=== PATIENT | female | born 1985 ===

== ENCOUNTER 2018-04-17 04:56 | Emergency (ER) | payer MEDICAID ==
[2018-04-17 05:13] VITALS: RESP 18; TEMP 98.4
--- NOTE | 2018-04-17 05:27 | ED PDOC ---
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 Patient reports she forgot to take her Trileptal medication today.Last seizure almost a year ago.Unsure of any history of substance abuse, but patient denies taking any drugs or drinking alcohol tonight. Patient denies any fever, chills, chest pain, shortness of breath, nausea, vomiting, diarrhea, urinary symptoms, back pain, neck pain, headache, dizziness, or any other complaints. Time/Duration: Prior to Arrival Symptom Onset: Sudden Symptom Course: Improving Activities at Onset: Light Context: Other (back seat of car) Past Medical History - Provider Review Nursing Documentation Reviewed: Yes - Infectious Disease Hx of Infectious Diseases: None - Neurological Hx Seizures: Yes - Psychiatric Hx Substance Use: No Family/Social History - Physician Review Nursing Documentation Reviewed: Yes Family/Social History: No Known Family HX Smoking Status: Never Smoked Hx Alcohol Use: Yes Frequency of alcohol use: Socially Hx Substance Use: No Allergies/Home Meds Allergies/Adverse Reactions: Allergies No Known Allergies Allergy (Verified 04/17/18 05:03) Home Medications: Home Meds Medication Instructions Recorded Confirmed OXcarbazepine [Trileptal] 600 mg PO BID 04/17/18 04/17/18 Review of Systems - Physician Review All systems were reviewed & negative as marked: Yes - Review of Systems Constitutional: absent: Fevers, Other (Chills) Respiratory: absent: SOB Cardiovascular: absent: Chest Pain Gastrointestinal: absent: Diarrhea, Nausea Genitourinary Female: absent: Dysuria, Frequency, Hematuria Musculoskeletal: absent: Back Pain, Neck Pain Neurological: Seizure. absent: Headache, Dizziness Physical Exam Vital Signs Reviewed: Yes Vital Signs Temp Pulse Resp BP Pulse Ox 04/17/18 05:10 98.4 F 109 H 18 116/72 98 Temperature: Afebrile Blood Pressure: Normal Pulse: Tachycardic Respiratory Rate: Normal Appearance: Positive for: Well-Appearing, Non-Toxic, Comfortable Pain Distress: None Mental Status: Positive for: Alert and Oriented X 3 - Systems Exam Head: Present: Atraumatic, Normocephalic Pupils: Present: PERRL Extroacular Muscles: Present: EOMI Conjunctiva: Present: Normal Mouth: Present: Moist Mucous Membranes Neck: Present: Normal Range of Motion Respiratory/Chest: Present: Clear to Auscultation, Good Air Exchange. No: Respiratory Distress, Accessory Muscle Use Cardiovascular: Present: Regular Rate and Rhythm, Normal S1, S2. No: Murmurs Abdomen: No: Tenderness, Distention, Peritoneal Signs Back: Present: Normal Inspection Upper Extremity: Present: Normal Inspection. No: Cyanosis, Edema Lower Extremity: Present: Normal Inspection. No: Edema Neurological: Present: GCS=15, CN II-XII Intact, Speech Normal Skin: Present: Warm, Dry, Normal Color. No: Rashes Psychiatric: Present: Alert, Oriented x 3, Normal Insight, Normal Concentration Medical Decision Making ED Course and Treatment: 04/17/18 05:27 Impression: 32 year old female presents s/p seizure episode in the back of seat of an [employer]. Plan: -- EKG -- Labs -- Reassess and disposition Progress Notes: 04/17/18 05:42 EKG shows Sinus Tachycardic at 109 BPM with non-specific ST/T changes. Interpreted by me. 04/17/18 07:08 The patient is choosing to leave against medical advice. I have personally explained to the patient that choosing to do so may result in permanent bodily harm, diability, or . I have discussed at great length that without further evaluation and monitoring there may be unforeseen circumstances and/or deterioration causing permanent bodily harm or as a result of their choice. The patient is alert, oriented, and shows the mental capacity to make clear decisions regarding the patients health care at this time. The patient continues to wish to leave against medical advice. In light of the patients decision to leave against medical advice, follow-up has been arranged and the patient is aware of the importance to following up as instructed. The patient has been advised that they should return to the emergency room immediately if they change their mind at any time, or if their condition begins to change or worsen in any way. - Lab Interpretations I have reviewed the lab results: Yes - EKG Interpretation Interpreted by ED Physician: Yes Type: 12 lead EKG - Scribe Statement The provider has reviewed the documentation as recorded by the Halina Desouza Provider Scribe Attestation: All medical record entries made by the Ruibvicki were at my direction and personally dictated by me. I have reviewed the chart and agree that the record accurately reflects my personal performance of the history, physical exam, medical decision making, and the department course for this patient. I have also personally directed, reviewed, and agree with the discharge instructions and disposition. Disposition/Present on Arrival - Present on Arrival Any Indicators Present on Arrival: No History of DVT/PE: No History of Uncontrolled Diabetes: No Urinary Catheter: No History of Decub. Ulcer: No History Surgical Site Infection Following: None - Disposition Have Diagnosis and Disposition been Completed?: Yes Diagnosis: Seizure disorder, Syncope Disposition: AGAINST MEDICAL ADVICE Disposition Time: 07:05 Patient Problems: Current Active Problems Problem Status Onset Seizure disorder Acute Syncope Acute Condition: STABLE Discharge Instructions (ExitCare): Syncope (ED) Referrals: FAMILY PROVIDER,NO [Primary Care Provider] - Follow up with primary Forms: [employer] (Ethiopian)
[2018-04-17 05:55] LABS: BASO # 0.01 K/mm3 (0.0-2.0); BASO % 0.1 % (0.0-3.0); EOS # 0.1 (0.0-0.7); GRAN # 7.44 (1.4-6.5); GRAN % 68.6 % (50.0-68.0); HEMOGLOBIN 12.5 g/dL (12.0-16.0); LYMPH # 2.6 (1.2-3.4); LYMPH % 23.9 % (22.0-35.0); MEAN CELL VOLUME 86.8 fl (80.0-105.0); MEAN CORPUSCULAR HEMOGLOBIN 28.9 pg (25.0-35.0); MEAN CORPUSCULAR HGB CONC 33.2 g/dl (31.0-37.0); MEAN PLATELET VOLUME 11.1 fl (7.0-11.0); MONO # 0.7 (0.1-0.6); MONO % 6.4 % (1.0-6.0); RBC 4.33 10^6/uL (3.5-6.1); RED CELL DISTRIBUTION WIDTH 12.9 % (11.5-14.5); WHITE BLOOD COUNT 10.8 10^3/uL (4.5-11.0)
[2018-04-17 06:06] LABS: ACETAMINOPHEN < 10.0 ug/ml (10.0-20.0); SALICYLATE < 1 mg/dL (2.0-20.0)
[2018-04-17 06:33] VITALS: BP 103/61; PULSE 92; O2SAT 97
[2018-04-17 06:47] LABS: ALB/GLOB RATIO 1.2 (1.1-1.8); ALBUMIN 4.2 g/dL (3.0-4.8); ALT/SGPT 17 U/L (7-56); AST/SGOT 19 U/L (14-36); BLOOD UREA NITROGEN 19 mg/dL (7-21); CALCIUM 9.2 mg/dL (8.4-10.5); GFR NON-AFRICAN AMERICAN > 60
[2018-04-17 07:15] LABS: BARBITURATES, UR NEGATIVE (NEGATIVE); BENZODIAZEPINES, UR NEGATIVE (NEGATIVE); OPIATES, UR NEGATIVE (NEGATIVE); PHENCYCLIDINE, UR NEGATIVE (NEGATIVE)
--- NOTE | 2018-04-17 10:28 | CT ---
Date of service: 04/17/2018 PROCEDURE: CT HEAD WITHOUT CONTRAST. HISTORY: seizure COMPARISON: None available. TECHNIQUE: Axial computed tomography images were obtained through the head/brain without intravenous contrast. Radiation dose: Total exam DLP = 766.64 mGy-cm. This CT exam was performed using one or more of the following dose reduction techniques: Automated exposure control, adjustment of the mA and/or kV according to patient size, and/or use of iterative reconstruction technique. FINDINGS: HEMORRHAGE: No intracranial hemorrhage. BRAIN: No mass effect or edema. No atrophy or chronic microvascular ischemic changes. VENTRICLES: Unremarkable. No hydrocephalus. CALVARIUM: Unremarkable. PARANASAL SINUSES: Unremarkable as visualized. No significant inflammatory changes. MASTOID AIR CELLS: Unremarkable as visualized. No inflammatory changes. OTHER FINDINGS: None. IMPRESSION: No acute intracranial pathology.
--- NOTE | 2018-04-17 10:35 | CARD ---
APPROVED REPORT Date of service: 04/17/2018 EKG Measurement Heart [id number] <Conclusion> Sinus tachycardia Nonspecific T wave abnormality Abnormal ECG
== END 2018-04-17 07:15 | disposition left against medical advice (07) ==
LOC: ED 04:56
DX: G40.909 Epilepsy, unspecified, not intractable, without status epilepticus (principal); R55 Syncope and collapse

== ENCOUNTER 2018-06-03 22:25 | Emergency (ER) | payer MEDICAID ==
[2018-06-03 22:30] VITALS: BMI 23.0
[2018-06-03 22:46] VITALS: RESP 18
[2018-06-03] MEDS ORDERED: Sodium Chloride 0.9% 1,000 ML IV SCH (23:15)
[2018-06-03 23:37] LABS: BASO # 0.01 K/mm3 (0.0-2.0); BASO % 0.1 % (0.0-3.0); EOS % 0.3 % (1.5-5.0); HEMOGLOBIN 10.8 g/dL (12.0-16.0); LYMPH # 3.7 (1.2-3.4); MEAN CELL VOLUME 86.4 fl (80.0-105.0); MEAN CORPUSCULAR HEMOGLOBIN 28.9 pg (25.0-35.0); MEAN CORPUSCULAR HGB CONC 33.4 g/dl (31.0-37.0); MEAN PLATELET VOLUME 10.1 fl (7.0-11.0); MONO # 0.6 (0.1-0.6); MONO % 5.2 % (1.0-6.0); RBC 3.74 10^6/uL (3.5-6.1); RED CELL DISTRIBUTION WIDTH 13.9 % (11.5-14.5)
[2018-06-03 23:38] LABS: INR 1.1; PARTIAL THROMBOPLASTIN TIME 30.1 Seconds (26.9-38.3); PROTHROMBIN TIME 12.2 SECONDS (9.4-12.5)
--- NOTE | 2018-06-03 23:56 | ED PDOC ---
Arrival/HPI - General Chief Complaint: Dizziness/Lightheaded Time Seen by Provider: 06/03/18 23:02 Historian: Patient - History of Present Illness Narrative History of Present Illness (Text): 06/04/18 22:55 32 year old female, whose past medical history includes , P:5, A: 3 previous miscarriages, who presents to the emergency department complaining of vaginal bleeding after taking Misoprostol at 14:00 today. Patient states it was given to her by [facility] for . Patient notes using mostly 5 pads in 2 hours after onset of vaginal bleeding. Patient notes similar occurrence in February when she had to have a D&C. Patient denies any type of trauma, pelvic pain, abdominal pain, constipation, diarrhea, urinary complaints, or any other complaints. Patient denies any recent sexual intercourse or any bleeding disorders. Patient states she does not have a [employer]IST[employer] or PMD. Time/Duration: 1-3 hours (Patient notes onset as 2 hours prior to arrival) Symptom Onset: Sudden Symptom Course: Unchanged Activities at Onset: Other (Patient notes onset after taking Misoprostol at 14:00 today ) Past Medical History - Provider Review Nursing Documentation Reviewed: Yes - Infectious Disease Hx of Infectious Diseases: None - Reproductive Currently : Yes - Cardiac Hx Cardiac Disorders: No - Neurological Hx Seizures: Yes - Psychiatric Hx Substance Use: No - Surgical History Other/Comment: DNC- February Family/Social History - Physician Review Nursing Documentation Reviewed: Yes Family/Social History: No Known Family HX Smoking Status: Never Smoked Hx Alcohol Use: Yes Hx Substance Use: No Allergies/Home Meds Allergies/Adverse Reactions: Allergies No Known Allergies Allergy (Verified 06/03/18 22:29) Home Medications: Home Meds Medication Instructions Recorded Confirmed OXcarbazepine [Trileptal] 2 tab PO BID 06/03/18 06/03/18 Review of Systems - Physician Review All systems were reviewed & negative as marked: Yes - Review of Systems Constitutional: absent: Fatigue Eyes: absent: Vision Changes, Photophobia ENT: absent: Hearing Changes, Tinnitus Respiratory: absent: SOB, Cough, Sputum, Wheezing Cardiovascular: absent: Chest Pain, Palpitations, Edema Gastrointestinal: Normal. absent: Abdominal Pain, Constipation, Diarrhea Genitourinary Female: Vaginal Bleeding. absent: Normal, Dysuria, Frequency, Hematuria, Urine Output Changes, Other Musculoskeletal: absent: Arthralgias, Back Pain, Neck Pain, Joint Swelling Skin: absent: Rash, Pruritis, Skin Lesions, Laceration Neurological: Other (Patient notes light-headedness from bleeding). absent: Normal, Headache Endocrine: absent: Diaphoresis Hemo/Lymphatic: absent: Adenopathy Psychiatric: absent: Anxiety Physical Exam Vital Signs Reviewed: Yes Vital Signs Temp Pulse Resp BP Pulse Ox 06/03/18 22:46 98.8 F 110 H 18 117/80 98 Temperature: Afebrile Blood Pressure: Normal Pulse: Tachycardic Respiratory Rate: Normal Appearance: Positive for: Well-Appearing, Non-Toxic, Comfortable Pain Distress: None Mental Status: Positive for: Alert and Oriented X 3 - Systems Exam Head: Present: Atraumatic, Normocephalic Pupils: Present: PERRL Extroacular Muscles: Present: EOMI Conjunctiva: Present: Normal Mouth: Present: Moist Mucous Membranes Neck: Present: Normal Range of Motion Respiratory/Chest: Present: Clear to Auscultation, Good Air Exchange. No: Respiratory Distress, Accessory Muscle Use Cardiovascular: Present: Regular Rate and Rhythm, Normal S1, S2. No: Murmurs Abdomen: No: Tenderness, Distention, Peritoneal Signs Back: Present: Normal Inspection. No: CVA Tenderness, Midline Tenderness Upper Extremity: Present: Normal Inspection. No: Cyanosis, Edema Lower Extremity: Present: Normal Inspection. No: Edema Neurological: Present: GCS=15, CN II-XII Intact, Speech Normal Skin: Present: Warm, Dry, Normal Color. No: Rashes Psychiatric: Present: Alert, Oriented x 3, Normal Insight, Normal Concentration Medical Decision Making ED Course and Treatment: 06/04/18 22:55 Impression: 32 year old female who presents to the Emergency department for vaginal bleeding after taking Misoprostol at 14:00 today. No fall or trauma. No abdominal pain. No constipation or diarrhea. No dark or bloody stool. Likely bleeding from miscarriage. Plan: -- Labs -- IV fluids -- Transvaginal US -- Reassess and disposition Prior Visits: Notes and results from previous visits were reviewed. Progress Notes: 06/04/18 01:17 O+, no need for Rhogram. Hemoglobin 10. 06/04/18 01:21 pending US 1L bolus ordered for BP drop from 120 systolic to 80s. Transvaginal US reviewed by radiologist, shows: Dictated by: Pool Rodgers M.D. Dictated date/time: 06/04/2018 01:43 IMPRESSION: Endometrial canal is heterogeneous and markedly thickened, up to 2.6 cm, compatible with blood clots. 06/04/18 02:03 US resulted w/ endometrial canal thickening c/w blood clots: Incomplete AB HGB dropped 2 points. 2 units PRBC ordered. PT in NAD, BP improved to systolic in the high 90s. Bolus running Consented to blood. Appreciate consult w/ Dr. Nayely Dye ([facility]): accepts pt to her service Appreciate consult w/ Dr. Ibarra (ED @ [facility]): aware of transfer incoming. 06/04/18 03:44 less tachy, BP systolic 90s. Pt in NAD, Normal mentation. X1 unit PRBC given, another unit hanging pt transferred to [facility] - Lab Interpretations Lab Results: PT 12.2 SECONDS (9.4-12.5) 06/03/18 23:16 INR 1.10 06/03/18 23:16 APTT 30.1 Seconds (26.9-38.3) 06/03/18 23:16 - RAD Interpretation Radiology Orders: 06/03/18 23:03 TRANSVAGINAL [US] Stat - Medication Orders Current Medication Orders: Sodium Chloride (Sodium Chloride 0.9%) 1,000 mls @ 100 mls/hr IV .Q10H CHIARA Last Admin: 06/03/18 23:22 Dose: 100 mls/hr eMAR Start Stop Document 06/03/18 23:22 IT (Rec: 06/03/18 23:22 IT [id number]) Intravenous Solution Start Date 06/03/18 Start Time 23:22 - Scribe Statement The provider has reviewed the documentation as recorded by the Scribe Doris Zavala All medical record entries made by the Scribe were at my direction and personally dictated by me. I have reviewed the chart and agree that the record accurately reflects my personal performance of the history, physical exam, medical decision making, and the department course for this patient. I have also personally directed, reviewed, and agree with the discharge instructions and disposition. Disposition/Present on Arrival - Present on Arrival Any Indicators Present on Arrival: No History of DVT/PE: No History of Uncontrolled Diabetes: No Urinary Catheter: No History of Decub. Ulcer: No History Surgical Site Infection Following: None - Disposition Have Diagnosis and Disposition been Completed?: Yes Diagnosis: Incomplete Disposition: Transfer [facility] Disposition Time: 02:06 Condition: STABLE Forms: [employer] (Tunisian)
[2018-06-04] LABS: ALB/GLOB RATIO 1.1 (1.1-1.8); ALBUMIN 3.8 g/dL (3.0-4.8); ALT/SGPT 9 U/L (7-56); AST/SGOT 20 U/L (14-36); BLOOD UREA NITROGEN 9 mg/dL (7-21); CALCIUM 8.8 mg/dL (8.4-10.5); GFR NON-AFRICAN AMERICAN > 60
[2018-06-04 01:18] VITALS: O2SAT 100
[2018-06-04] MEDS ORDERED: Sodium Chloride 0.9% 1,000 ML IV STA (01:20)
[2018-06-04 01:42] LABS: EOS % 0.2 % (1.5-5.0); LYMPH # 2.5 (1.2-3.4); LYMPH % 21.9 % (22.0-35.0); MEAN CELL VOLUME 86.1 fl (80.0-105.0); MEAN CORPUSCULAR HEMOGLOBIN 28.9 pg (25.0-35.0); MEAN CORPUSCULAR HGB CONC 33.6 g/dl (31.0-37.0); MEAN PLATELET VOLUME 9.8 fl (7.0-11.0); MONO # 0.6 (0.1-0.6); MONO % 5.1 % (1.0-6.0); RBC 2.94 10^6/uL (3.5-6.1); RED CELL DISTRIBUTION WIDTH 13.8 % (11.5-14.5); WHITE BLOOD COUNT 11.6 10^3/uL (4.5-11.0)
[2018-06-04 01:48] LABS: HEMOGLOBIN 8.5 g/dL (12.0-16.0)
[2018-06-04 03:45] VITALS: BP 93/58; PULSE 82; TEMP 98.8
--- NOTE | 2018-06-04 08:02 | US ---
Date of service: 06/04/2018 HISTORY: vaginal bleed COMPARISON: None available. TECHNIQUE: Transvaginal only. Real -time technique with 2D, duplex and color Doppler FINDINGS: UTERUS: Measures 5.3 x 6.2 x 10.7 cm. Normal in size and appearance. No fibroid or other mass lesion seen. ENDOMETRIUM: Measures 26.0 mm in diameter. Thickened heterogeneous endometrium. No visible products of conception. CERVIX: No cervical abnormality identified. RIGHT OVARY: Measures 2.1 x 2.4 x 2.5 cm. No solid mass. Normal flow. LEFT OVARY: Measures 2.6 x 3.0 x 3.4 cm. No solid mass. Normal flow. FREE FLUID: No significant free fluid noted. OTHER FINDINGS: None. IMPRESSION: Markedly thickened heterogeneous endometrium without visible products of conception. Unremarkable adnexa. Concordant findings (preliminary report) provided by [employer].
== END 2018-06-04 03:47 | disposition short-term general hospital (02) ==
LOC: ED 22:25
DX: O03.4 Incomplete spontaneous abortion without complication (principal)
CPT/HCPCS: 36430; 76817; 80053; 84702; 85025; 85610; 85730; 86850; 86900; 86920; 99285; J7030; P9016